=== PATIENT | female | born 1955 | race Caucasian/White ===

== ENCOUNTER 2019-08-31 12:44 | Outpatient (CLI) | payer MEDICARE, SELFPAY ==
[2019-08-31 12:56] LABS: Basophils Absolute Auto 0.1 K/mm3 (0.0-0.1); Eosinophils Absolute Auto 0.2 K/mm3 (0-0.3); Eosinophils Percent Auto 2.6 % (0-4.4); Hematocrit 43.7 % (37.0-47.0); Hemoglobin 14.8 g/dL (12.0-15.0); Immature Granulocyte Absolute 0.02 K/mm3 (0.00-0.031); Immature Granulocyte Percent A 0.3 % (0-0.5); Lymphocytes Absolute Auto 1.87 K/mm3 (0.9-3.2); Lymphocytes Percent Auto 31.9 % (18.3-44.2); Mean Corpuscular HGB Conc 33.9 g/dl (32-36); Mean Corpuscular Volume 91.6 fl (80-100); Mean Platelet Volume 9.1 fl (7.4-10.4); Monocytes Absolute Auto 0.4 K/mm3 (0.1-0.6); Monocytes Percent Auto 6.8 % (2.6-8.5); Neutrophils Absolute Auto 3.4 K/mm3 (1.3-6.7); Neutrophils Percent Auto 57.4 % (45.5-73.1); Platelet Count Result 364 k/mm3 (150-375); Red Blood Count 4.77 M/mm3 (4.2-5.4); Red Cell Distribution Width 12.7 % (11.5-14.5); White Blood Count 5.9 K/mm3 (4.5-10.0)
[2019-08-31 13:00] LABS: Blood Urea Nitrogen 17 mg/dL (8-26); Carbon Dioxide 27 mmol/L (22-30); Chloride 103 mmol/L (98-109); Estimated Glomerular Filt Rate > 60; Glucose 103 mg/dL (70-105); Potassium 4.1 mmol/L (3.5-4.9); Sodium 140 mmol/L (138-146)
[2019-08-31 16:36] LABS: Alanine Aminotransferase 41 U/L (4-35); Albumin Level 5.1 g/dL (3.5-5.1); Alkaline Phosphatase 99 U/L (38-126); Aspartate Amino Transferase 42 U/L (14-36); Bilirubin,Total 0.7 mg/dL (0.2-1.3); Blood Urea Nitrogen 16 mg/dL (7-17); Calcium 10.2 mg/dL (8.4-10.2); Carbon Dioxide 26 mmol/L (22-30); Chloride 102 mmol/L (98-107); Estimated Glomerular Filt Rate > 60; Glucose 98 mg/dL (65-105); Potassium 4.6 mmol/L (3.4-5.0); Sodium 139 mmol/L (137-145)
== END 2019-08-31 12:45 | disposition home or self-care (01) ==
PROVIDERS: PCP Internal Medicine; Visit Provider Internal Medicine Hematology & Oncology
DX: D05.02 Lobular carcinoma in situ of left breast (principal)
CPT/HCPCS: 36415; 80048; 80053; 85025

== ENCOUNTER 2020-10-01 10:35 | Outpatient (CLI) | payer MEDICARE, SELFPAY ==
[2020-10-01 10:48] LABS: Basophils Absolute Auto 0.1 K/mm3 (0.0-0.1); Basophils Percent Auto 1.3 % (0.2-1.2); Eosinophils Absolute Auto 0.4 K/mm3 (0-0.3); Eosinophils Percent Auto 5.8 % (0-4.4); Hemoglobin 13.9 g/dL (12.0-15.0); Immature Granulocyte Absolute 0.02 K/mm3 (0.00-0.031); Immature Granulocyte Percent A 0.3 % (0-0.5); Lymphocytes Absolute Auto 1.73 K/mm3 (0.9-3.2); Lymphocytes Percent Auto 28.1 % (18.3-44.2); Mean Corpuscular HGB Conc 33.9 g/dl (32-36); Mean Corpuscular Volume 91.5 fl (80-100); Mean Platelet Volume 9.2 fl (7.4-10.4); Monocytes Absolute Auto 0.4 K/mm3 (0.1-0.6); Neutrophils Absolute Auto 3.5 K/mm3 (1.3-6.7); Neutrophils Percent Auto 57.5 % (45.5-73.1); Platelet Count Result 332 k/mm3 (150-375); Red Blood Count 4.48 M/mm3 (4.2-5.4); Red Cell Distribution Width 13.1 % (11.5-14.5); White Blood Count 6.2 K/mm3 (4.5-10.0)
[2020-10-01 10:55] LABS: Blood Urea Nitrogen 17 mg/dL (8-26); Carbon Dioxide 28 mmol/L (22-30); Chloride 103 mmol/L (98-109); Estimated Glomerular Filt Rate > 60; Glucose 102 mg/dL (70-105); Sodium 140 mmol/L (138-146)
[2020-10-01 11:42] LABS: Alanine Aminotransferase 30 U/L (4-35); Albumin Level 4.9 g/dL (3.5-5.1); Alkaline Phosphatase 83 U/L (38-126); Anion Gap 8 mmol/L (8-16); Aspartate Amino Transferase 34 U/L (14-36); Bilirubin,Total 0.7 mg/dL (0.2-1.3); Blood Urea Nitrogen 17 mg/dL (7-17); Calcium 10.1 mg/dL (8.4-10.2); Carbon Dioxide 27 mmol/L (22-30); Chloride 104 mmol/L (98-107); Estimated Glomerular Filt Rate > 60; Glucose 100 mg/dL (65-105); Potassium 4.4 mmol/L (3.4-5.0); Sodium 139 mmol/L (137-145)
== END 2020-10-01 10:36 | disposition home or self-care (01) ==
LOC: ANHLAB 10:36
PROVIDERS: PCP Internal Medicine; Visit Provider Internal Medicine Hematology & Oncology
DX: D05.02 Lobular carcinoma in situ of left breast (principal)
CPT/HCPCS: 36415; 80048; 80053; 85025

== ENCOUNTER 2021-10-07 09:28 | Outpatient (CLI) | payer MEDICARE, SELFPAY ==
[2021-10-07 09:45] LABS: Basophils Absolute Auto 0.1 K/mm3 (0.0-0.1); Basophils Percent Auto 1.4 % (0.2-1.2); Eosinophils Absolute Auto 0.4 K/mm3 (0-0.3); Eosinophils Percent Auto 7.2 % (0-4.4); Hematocrit 42.5 % (37.0-47.0); Hemoglobin 13.9 g/dL (12.0-15.0); Immature Granulocyte Absolute 0.02 K/mm3 (0.00-0.031); Immature Granulocyte Percent A 0.4 % (0-0.5); Lymphocytes Absolute Auto 1.51 K/mm3 (0.9-3.2); Lymphocytes Percent Auto 29.5 % (18.3-44.2); Mean Corpuscular HGB Conc 32.7 g/dl (32-36); Mean Corpuscular Hemoglobin 31.2 pg (26-34); Mean Corpuscular Volume 95.5 fl (80-100); Mean Platelet Volume 9.2 fl (7.4-10.4); Monocytes Absolute Auto 0.4 K/mm3 (0.1-0.6); Monocytes Percent Auto 7.8 % (2.6-8.5); Neutrophils Absolute Auto 2.7 K/mm3 (1.3-6.7); Neutrophils Percent Auto 53.7 % (45.5-73.1); Platelet Count Result 308 k/mm3 (150-375); Red Blood Count 4.45 M/mm3 (4.2-5.4); White Blood Count 5.1 K/mm3 (4.5-10.0)
[2021-10-07 09:48] LABS: Blood Urea Nitrogen 15 mg/dL (8-26); Carbon Dioxide 27 mmol/L (22-30); Chloride 105 mmol/L (98-109); Estimated Glomerular Filt Rate > 60; Glucose 108 mg/dL (70-105); Ionized Calcium (POC) 1.18 mmol/L (1.11-1.31); Potassium 3.8 mmol/L (3.5-4.9); Sodium 141 mmol/L (138-146)
[2021-10-07 11:08] LABS: Alanine Aminotransferase 47 U/L (4-35); Albumin Level 4.8 g/dL (3.5-5.1); Alkaline Phosphatase 84 U/L (38-126); Anion Gap 8 mmol/L (8-16); Aspartate Amino Transferase 48 U/L (14-36); Bilirubin,Total 0.7 mg/dL (0.2-1.3); Blood Urea Nitrogen 16 mg/dL (7-17); Calcium 9.7 mg/dL (8.4-10.2); Carbon Dioxide 25 mmol/L (22-30); Chloride 106 mmol/L (98-107); Estimated Glomerular Filt Rate > 60; Glucose 107 mg/dL (65-110); Potassium 3.8 mmol/L (3.4-5.0); Sodium 139 mmol/L (137-145)
== END 2021-10-07 09:29 | disposition home or self-care (01) ==
LOC: ANHLAB 09:32
PROVIDERS: PCP Internal Medicine; Visit Provider Internal Medicine Hematology & Oncology
DX: D05.02 Lobular carcinoma in situ of left breast (principal)
CPT/HCPCS: 36415; 80047; 80053; 85025

== ENCOUNTER 2022-10-06 09:44 | Outpatient (CLI) | payer MEDICARE, SELFPAY ==
[2022-10-06 09:56] LABS: Basophils Absolute Auto 0.1 K/mm3 (0.0-0.1); Basophils Percent Auto 1.1 % (0.2-1.2); Eosinophils Absolute Auto 0.3 K/mm3 (0-0.3); Eosinophils Percent Auto 4.6 % (0-4.4); Hematocrit 42.1 % (37.0-47.0); Hemoglobin 14.5 g/dL (12.0-15.0); Immature Granulocyte Absolute 0.01 K/mm3 (0.00-0.031); Immature Granulocyte Percent A 0.2 % (0-0.5); Lymphocytes Absolute Auto 1.62 K/mm3 (0.9-3.2); Lymphocytes Percent Auto 28.4 % (18.3-44.2); Mean Corpuscular HGB Conc 34.4 g/dl (32-36); Mean Corpuscular Hemoglobin 31.6 pg (26-34); Mean Corpuscular Volume 91.7 fl (80-100); Mean Platelet Volume 9.3 fl (7.4-10.4); Monocytes Absolute Auto 0.4 K/mm3 (0.1-0.6); Monocytes Percent Auto 6.8 % (2.6-8.5); Neutrophils Absolute Auto 3.4 K/mm3 (1.3-6.7); Neutrophils Percent Auto 58.9 % (45.5-73.1); Platelet Count Result 322 k/mm3 (150-375); Red Blood Count 4.59 M/mm3 (4.2-5.4); Red Cell Distribution Width 12.4 % (11.5-14.5); White Blood Count 5.7 K/mm3 (4.5-10.0)
[2022-10-06 10:02] LABS: Blood Urea Nitrogen 15 mg/dL (8-26); Carbon Dioxide 26 mmol/L (22-30); Chloride 105 mmol/L (98-109); Estimated Glomerular Filt Rate > 60; Glucose 106 mg/dL (70-105); Ionized Calcium (POC) 1.21 mmol/L (1.11-1.31); Sodium 141 mmol/L (138-146)
[2022-10-06 15:00] LABS: Alanine Aminotransferase 38 U/L (6-35); Albumin Level 4.9 g/dL (3.5-5.1); Alkaline Phosphatase 92 U/L (38-126); Anion Gap 6 mmol/L (8-16); Aspartate Amino Transferase 41 U/L (14-36); Bilirubin,Total 0.7 mg/dL (0.2-1.3); Blood Urea Nitrogen 15 mg/dL (7-17); Calcium 9.7 mg/dL (8.4-10.2); Carbon Dioxide 28 mmol/L (22-30); Chloride 106 mmol/L (98-107); Estimated Glomerular Filt Rate > 60; Glucose 103 mg/dL (65-110); Potassium 4.1 mmol/L (3.4-5.0); Sodium 140 mmol/L (137-145)
== END 2022-10-06 09:45 | disposition home or self-care (01) ==
LOC: ANHLAB 09:47
PROVIDERS: PCP Internal Medicine; Visit Provider Internal Medicine Hematology & Oncology
DX: D05.02 Lobular carcinoma in situ of left breast (principal)
CPT/HCPCS: 36415; 80047; 80053; 85025

== ENCOUNTER 2023-10-05 09:55 | Outpatient (CLI) | payer MEDICARE, SELFPAY ==
[2023-10-05 10:15] LABS: Basophils Absolute Auto 0.1 K/mm3 (0.0-0.1); Basophils Percent Auto 1.1 % (0.2-1.2); Eosinophils Absolute Auto 0.5 K/mm3 (0-0.3); Eosinophils Percent Auto 7.5 % (0-4.4); Hematocrit 42.9 % (37.0-47.0); Hemoglobin 14.7 g/dL (12.0-15.0); Immature Granulocyte Absolute 0.02 K/mm3 (0.00-0.031); Immature Granulocyte Percent A 0.3 % (0-0.5); Lymphocytes Absolute Auto 1.87 K/mm3 (0.9-3.2); Lymphocytes Percent Auto 30.3 % (18.3-44.2); Mean Corpuscular HGB Conc 34.3 g/dl (32-36); Mean Corpuscular Hemoglobin 31.7 pg (26-34); Mean Corpuscular Volume 92.7 fl (80-100); Mean Platelet Volume 9.3 fl (7.4-10.4); Monocytes Absolute Auto 0.4 K/mm3 (0.1-0.6); Monocytes Percent Auto 6.3 % (2.6-8.5); Neutrophils Absolute Auto 3.4 K/mm3 (1.3-6.7); Neutrophils Percent Auto 54.5 % (45.5-73.1); Platelet Count Result 326 k/mm3 (150-375); Red Blood Count 4.63 M/mm3 (4.2-5.4); White Blood Count 6.2 K/mm3 (4.5-10.0)
[2023-10-05 10:24] LABS: Blood Urea Nitrogen 15 mg/dL (8-26); Carbon Dioxide 25 mmol/L (22-30); Chloride 104 mmol/L (98-109); Estimated Glomerular Filt Rate > 60; Glucose 105 mg/dL (70-105); Ionized Calcium (POC) 1.24 mmol/L (1.11-1.31); Potassium 4.2 mmol/L (3.5-4.9); Sodium 142 mmol/L (138-146)
[2023-10-05 12:56] LABS: Alanine Aminotransferase 59 U/L (6-35); Albumin Level 5.1 g/dL (3.5-5.1); Alkaline Phosphatase 95 U/L (38-126); Anion Gap 8 mmol/L (4-12); Aspartate Amino Transferase 44 U/L (14-36); Bilirubin,Total 0.8 mg/dL (0.2-1.3); Blood Urea Nitrogen 14 mg/dL (7-17); Calcium 9.9 mg/dL (8.4-10.2); Carbon Dioxide 25 mmol/L (22-30); Chloride 106 mmol/L (98-107); Estimated Glomerular Filt Rate > 60; Glucose 106 mg/dL (65-110); Potassium 4.4 mmol/L (3.4-5.0); Sodium 139 mmol/L (137-145)
== END 2023-10-05 09:56 | disposition home or self-care (01) ==
LOC: ANHLAB 09:57
PROVIDERS: PCP Internal Medicine; Visit Provider Internal Medicine Hematology & Oncology
DX: D05.02 Lobular carcinoma in situ of left breast (principal)
CPT/HCPCS: 36415; 80047; 80053; 85025

== ENCOUNTER 2023-12-31 09:30 | Outpatient (RCR) | payer MEDICARE, SELFPAY ==
--- NOTE | 2023-11-26 18:01 | PTOPEVAL1 ---
Assessment and note entered by Andria Hercules, PT Evaluation Information Assessment Status Evaluation Diagnosis B knee pain and arthritis Onset gradual, over time Subjective Information Pt reports feeling increased pain to B knees, worse with bending and squatting. States it was really hurting bad last Thursday after she was on her feet constantly while removing wallpaper, climbing up ladder, getting down on the floor and getting back up on her feet. However today, it seemed better. states being at the pool helps alot and that was where she was at prior to coming in to therapy. States FRAMING CONSULTANT changed her medications because the statins seem to have caused the increased swelling and pain which she experienced for almost a month , swelling is gone at this time. Reported Pain Level Pain Score 4: Self Report Assessment PT Clinical Summary Pt is a 68 yo female who presents to therapy with B knee pain, B genu varus R > L; muscle tightness, weakness, postural and gait impairments which impact her tolerance to standing and ambulation tasks on uneven surfaces and stairs. She has a PMHx of HTN, Dyslipidemia, pre-diabetes, osteopenia, transaminitis and hyperglycemia. X- rays showed mild OA to B knees. She will greatly benefit from skilled PT to improve joint mobility, core and BLE strength, knee stability and pain management to improve quality of life. Plan of Care Interventions Check Out for Orthotic/Pr,Electrical Stimulation, Gait Training,Hot Pack/Cold Pack,Manual Therapy, Neuro Re-education,Patient/Caregiver Education, Therapeutic Activities,Therapeutic Exercise, Ultrasound PT Services Indicated Yes Treatment Frequency and 2x/week x 10 visits Duration These treatments will address the objective and functional deficits as defined above. The patient will be advanced safely and appropriately in order for the patient to progress towards his/her prior level of function. Additional exercises will be introduced and as well as a comprehensive home exercise program upon discharge, if needed, ?to ensure carryover of functional gains achieved in the clinic. This treatment plan has been reviewed and agreement upon by the patient.
--- NOTE | 2024-01-07 11:57 | PTOPDC ---
Assessment and note entered by Andria Hercules, PT Evaluation Information Assessment Status Discharge Diagnosis B knee pain and arthritis ICD-10 Condition Codes (PT) M25.561,Pain in left knee M25.562 Onset gradual, over time Subjective Information Pt reports feeling so much better and pain has significantly reduced. States appreciate all the knowledge she has gained with regards to awareness and activity pacing. Compliant with HEPs Assessment PT Clinical Summary Patient demos excellent progress with therapy, noted significant reduction in pain, improved mobility, strength and balance. Skilled PT discontinued at this time. Plan of Care PT Services Indicated No
== END 2024-01-07 13:20 | disposition home or self-care (01) ==
LOC: ANHHIPT 09:30
PROVIDERS: PCP Physician Assistant Medical; Visit Provider Physician Assistant Medical
DX: M25.561 Pain in right knee (principal); M25.562 Pain in left knee
CPT/HCPCS: 97035; 97110; 97112; 97116; 97140; 97161; 97530; 97750

== ENCOUNTER 2024-11-29 10:44 | Outpatient (CLI) | payer MEDICARE, SELFPAY ==
[2024-11-29 11:00] LABS: Basophils Absolute Auto 0.1 K/mm3 (0.0-0.1); Basophils Percent Auto 0.9 % (0.2-1.2); Eosinophils Absolute Auto 0.3 K/mm3 (0-0.3); Eosinophils Percent Auto 5.3 % (0-4.4); Hematocrit 39.3 % (37.0-47.0); Hemoglobin 13.2 g/dL (12.0-15.0); Immature Granulocyte Absolute 0.02 K/mm3 (0.00-0.031); Immature Granulocyte Percent A 0.4 % (0-0.5); Lymphocytes Absolute Auto 1.49 K/mm3 (0.9-3.2); Lymphocytes Percent Auto 27.3 % (18.3-44.2); Mean Corpuscular HGB Conc 33.6 g/dl (32-36); Mean Corpuscular Hemoglobin 30.3 pg (26-34); Mean Corpuscular Volume 90.1 fl (80-100); Mean Platelet Volume 9.1 fl (7.4-10.4); Monocytes Absolute Auto 0.4 K/mm3 (0.1-0.6); Monocytes Percent Auto 6.6 % (2.6-8.5); Neutrophils Absolute Auto 3.2 K/mm3 (1.3-6.7); Neutrophils Percent Auto 59.5 % (45.5-73.1); Platelet Count Result 309 k/mm3 (150-375); Red Blood Count 4.36 M/mm3 (4.2-5.4); Red Cell Distribution Width 12.3 % (11.5-14.5); White Blood Count 5.5 K/mm3 (4.5-10.0)
[2024-11-29 11:12] LABS: Blood Urea Nitrogen 16 mg/dL (8-26); Carbon Dioxide 26 mmol/L (22-30); Chloride 102 mmol/L (98-109); Estimated Glomerular Filt Rate > 60; Glucose 104 mg/dL (70-105); Ionized Calcium (POC) 1.18 mmol/L (1.11-1.31); Potassium 3.6 mmol/L (3.5-4.9); Sodium 140 mmol/L (138-146)
--- OUTSIDE RECORDS SUMMARY | 2024-11-29 11:53 | XMS_ITS | Clinical Summary ---
Author Organization [facility] Address [address] [place] [address] Care Team Providers Care Wool Hat Finisher Name Role Phone Avtar Tesfaye Primary Care Provider Unavailabl e Source Comments [facility],non-owned Affiliates and Associated Physician Practices is amultiple site organization consisting of ambulatory clinics and hospital sitesin [place], [place], [place] and [place]. This disclosure is being madepursuant to the Care Everywhere program and may not contain all information available regarding this patient. Last updated 18.[facility] [employer] Allergies Active Allergy Reactions Criticality Noted Date Comments Penicillin G Rash Medium 12/21/2012 Active Problems Problem Noted Date Diagnosed Date Basal cell carcinoma of skin of upper limb, including shoulder 09/16/2013 Overview (09/14/2017): S/p ED&C (03/27) Actinic keratosis 12/21/2012 Family History Medical History Relation Name Comments Diabetes Brother High Cholesterol Brother Cancer - Skin, Non Melanoma Father Diabetes Father Glaucoma Father Arthritis - Rheumatoid Mother Cancer - Skin, Non Melanoma Mother Glaucoma Mother Bone Fracture Sister Diabetes Sister High Cholesterol Sister Thyroid Disease Sister Relation Name Status Comments Brother Father Mother Sister Social History Tobacco Use Types Packs/Day Years Used Date Smoking Tobacco: Never Smokeless Tobacco: Never Alcohol Use Standard Drinks/Week Comments Yes 0 (1 standard drink = 0.6 oz pur e alcohol) Comments Unknown Sex and Gender Information Value Date Recorded Sex Assigned at Not on file 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 Gender Identity Not on file Sexual Orientation Not on file Last Filed Vital Signs Vital Sign Reading Time Taken Comments Blood Pressure 138/91 12/23/2013 2:15 PM CDT Pulse 92 12/23/2013 2:15 PM CDT Temperature - - Respiratory Rate 12 12/23/2013 2:15 PM CDT Oxygen Saturation - - Inhaled Oxygen Concentration - - Weight 61.2 kg (135 lb) 12/23/2013 2:15 PM CDT Height 152.4 cm (5') 12/23/2013 2:15 PM CDT Body Mass Index 26.37 12/23/2013 2:15 PM CDT Plan of Treatment Health Maintenance Due Date Last Done Comments BONE DENSITY TESTING 1955 COLOGUARD (AGES 45-75) - COL ON CA SCREENING 1955 COLON MONITORING 1955 COLONOSCOPY - COLON CA SCREENING 1955 CT COLONOGRAPHY - COLON CA SCREENING 1955 Colorectal Cancer Screening 1955 FIT - COLON CA SCREENING 1955 FLEX SIG - COLON CA SCREENING 1955 LIPID TESTING 1955 MAMMOGRAM 1955 HEPATITIS C SCREENING 03/28/1972 DTAP/TDAP/TD VACCINES (1 - Tdap) 1973 PNEUMOCOCCAL VACCINE 50+ (1 of 1 - PCV) 2004 ZOSTER VACCINE (1 of 2) 2004 COVID-19 VACCINE ( - 2023-2 5 season) 2024 DEPRESSION SCREENING 06/15/2024 INFLUENZA VACCINE (Season Ended) 2025 Respiratory Syncytial Virus (RSV) Vaccine Pt: or over 60 yrs (1 - 1-dose 75+ series) 2029 HEPATITIS B VACCINE Aged Out No longe r eligible based on patient's age to complete this topic HIB VACCINE Aged Out No longer eligi ble based on patient's age to complete this topic HPV VACCINE Aged Out No longer eligi ble based on patient's age to complete this topic MENINGOCOCCAL (Group B) VACC INE SHARED DECISION-MAKING Aged Out No longer eligibl e based on patient's age to complete this topic MENINGOCOCCAL GROUPS A/C/Y/W VACCINE Aged Out No longer eligible b ased on patient's age to complete this topic Care Teams Wool Hat Finisher Relationship Specialty Start Date End Date Avtar Tesfaye Update Information PCP - General 12/07/14
--- OUTSIDE RECORDS SUMMARY | 2024-11-29 11:53 | XMS_ITS | Encounter Summary ---
Author Organization [facility] [employer] [facility] Address [address] [place] [address] Care Team Providers Care Reducer Name Role Phone Avtar Ely MD Primary Care Provider [phone] Encounter Details Date Type Department Care Team (Late Contact Info) Description 11/28/2024 Orders Only [facility] Oncology and Hematology - [place] [address] [place] [address] Fortunato Tao MD [facility] [employer] [address] [place] [phone] Breast neoplasm, Tis (LCIS), left (Primary Dx) Social History Tobacco Use Types Packs/Day Years Used Date Smoking Tobacco: Never Smokeless Tobacco: Never Alcohol Use Standard Drinks/Week Comments Yes 0 (1 standard drink = 0.6 oz pur e alcohol) socially Comments No Sex and Gender Information Value Date Recorded Sex Assigned at Not on file 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 Gender Identity Not on file Sexual Orientation Not on file Occupation Industry Job Start Date Job End Date Not on file Not on file Not on file Not on file documented as of this encounter Plan of Treatment Upcoming Encounters Date Type Department Care Team (Late Contact Info) Description 12/01/2025 8:30 AM CDT Office Visit [facility] Oncology and Hematology - [place] [address] [place] [address] Fortunato Tao MD [address] [employer] [address] [place] [address] Scheduled Orders Name Type Priority Associated Diagnoses Orde r Schedule CBC WITH DIFFERENTIAL Lab Routine Breast neoplasm, Tis (LCIS), left Expected: 11/28/2024, Expires: 11/28/2025 COMPREHENSIVE METABOLIC PANEL Lab Routine Breast neoplasm, Tis (LCIS), left Expected: 11/28/2024, Expires: 11/28/2025 documented as of this encounter Visit Diagnoses Diagnosis Breast neoplasm, Tis (LCIS), left- Primary documented in this encounter Care Teams Reducer Relationship Specialty Start Date End Date Avtar Ely MD [address] [place] [phone] PCP - General Internal Medicine 02/13/12 11/28/24 documented as of this encounter
--- OUTSIDE RECORDS SUMMARY | 2024-11-29 11:53 | XMS_ITS | Clinical Summary ---
Author Organization [facility] Address [address] [place] [address] Phone Care Team Providers Care Freight Receiver Name Role Phone Unavailable Primary Care Provider Unavailabl e Allergies Active Allergy Reactions Criticality Noted Date Comments Latex Rash Medium 02/24/2012 Powder in gloves cause rash Powder in gloves cause rash Penicillin G Rash Medium 12/21/2012 Penicillins Rash Medium 02/13/2012 Medications Fish Oil-[place]-3 Fatty Acids 300-500 mg Capsule Take 500 mg by mouth daily. Active multivitamin (DAILY-CODIE) tablet Take 1 Tablet by mouth daily. Active rosuvastatin (CRESTOR) 10 mg tablet Take 10 mg by mouth daily. Active pantoprazole (PROTONIX) 20 mg Tablet, Delayed Release (E.C.) Take 20 mg by mouth daily. Active olmesartan-hydro CHLOROthiazide (BENICAR-HCT) 20-12.5 mg tablet Take 1 Tablet by mouth every 24 hours. 03/21/2024 Active Active Problems Patient Care Coordination No te Formatting of this note migh t be different from the original. Primary Care: Avtar Ely MD Referring Provider: Avtar Ely MD [facility] [address] [place] [id number] Other: Problem Noted Date Diagnosed Date History of lobular carcinoma in situ (LCIS) of b reast 08/31/2017 BRCA negative 07/21/2014 Family history of breast cancer 06/28/2013 Genetic testing 06/15/2013 Overview (07/15/2013): brca neg, dilip neg Resolved Problems Problem Noted Date Diagnosed Date Resolved Date Lobular carcinoma in situ of right breast TisN0 02/26/2012 08/31/2017 Encounters Date Type Department Care Team Description 11/29/2024 11:15 AM CDT Office Visit [facility] Oncology and [facility] [address] [place] [address] Fortunato Tao MD Breast neoplasm, Tis (LCIS), left (Primary Dx) 11/28/2024 Orders Only [facility] and [facility] [address] [place] [address] Fortunato Tao MD Breast neoplasm, Tis (LCIS), left (Primary Dx) 08/31/2024 External Device Data STL ABSTRACTION Provider, Abstract from Last 3 Months Family History Medical History Relation Name Comments Hypertension Brother 1 Hypertension Brother 2 Diabetes Father Heart Disease Father Other Father diabetes Breast Cancer Maternal Aunt 1 60's Colon Cancer Maternal Aunt 2 50's Breast Cancer Maternal Cousin 1 Kary W Uterine Cancer Maternal Cousin 1 Kary W Breast Cancer Maternal Cousin 2 Zoraida 20's Moth er's brother Trey's daughter. Both Trey's daughters had breast ca Breast Cancer Maternal Cousin 3 30's Moth er's brother Trey's daughter Hypertension Maternal Grandfather Colon Cancer Maternal Uncle 50's Colon Cancer Mother Colon Cancer Other nephew Diabetes Sister 1 Hypertension Sister 1 Other Sister 1 diabetes Hypertension Sister 2 Hypertension Sister 3 Cancer Sister 4 pituitary mass Hypertension Sister 4 Ovarian Cancer Neg Hx Relation Name Status Comments Brother 1 Alive Brother 2 Alive Father Alive Maternal Aunt 1 Alive Maternal Aunt 2 Maternal Cousin 1 Kary W Maternal Cousin 2 Zoraida Alive Maternal Cousin 3 Maternal Grandfather Alive Maternal Uncle Mother Other nephew Alive Sister 1 Alive Sister 2 Alive Sister 3 Alive Sister 4 Alive Social History Tobacco Use Types Packs/Day Years Used Date Smoking Tobacco: Never Smokeless Tobacco: Never Tobacco Cessation:Counseling Given: Not Answered Alcohol Use Standard Drinks/Week Comments Yes 0 (1 standard drink = 0.6 oz pur e alcohol) socially Comments No Sex and Gender Information Value Date Recorded Sex Assigned at Not on file 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 Gender Identity Not on file Sexual Orientation Not on file Occupation Industry Job Start Date Job End Date Not on file Not on file Not on file Not on file Last Filed Vital Signs Vital Sign Reading Time Taken Comments Blood Pressure 157/98 11/29/2024 11:08 AM CDT Pt sated that she is nervous Pulse 94 11/29/2024 11:03 AM CDT Temperature 36.6 C (97.8 F) 11/29/2024 11:03 AM CDT Respiratory Rate 15 11/29/2024 11:0 3 AM CDT Oxygen Saturation 95% 11/29/2024 11: 03 AM CDT Inhaled Oxygen Concentration - - Weight 77 kg (169 lb 12.8 oz) 11/29/2024 11:03 AM CDT Height 152.4 cm (5') 10/07/2021 9:53 AM CDT Body Mass Index 33.16 10/07/2021 9:53 AM CDT Plan of Treatment Upcoming Encounters Date Type Department Care Team (Late st Contact Info) Description 12/01/2025 8:30 AM CDT Office Visit [facility] Oncology and Hematology - [place] [address] [place] [address] [facility] [address] [place] [address] Fortunato Tao MD [address] [facility] [address] [place] [address] Health Maintenance Due Date Last Done Comments DTAP/TDAP/TD VACCINES (1 - Tdap) 1973 COLORECTAL SCREENING 1999 Colorectal Cancer Screening 1999 FIT-DNA Q 3 years 1999 FIT/FOBT Q 1 year 1999 Flex Sig/CT Colonography Q 5 years 1999 ZOSTER VACCINE (2 of 2) 06/14/2020 04/19/2020 PNEUMOCOCCAL VACCINE 50+ YEA RS (2 of 2 - PPSV23) 03/21/2022 03/21/2021 INFLUENZA VACCINE (#1) 2024 03/21/2021 [place] Preventative Visit/Annual Wellness Visit 06/15/2024 RSV VACCINE (60+ or ) (1 - 1-dose 75+ series) 2029 OSTEOPOROSIS SCREENING 10/17/2029 5, 10/17/2024, 04/28/2022, Additional history exists Insurance Advance Directives For more information, please contact: [phone] * Full Code (Latest Code Status on File) Date Activated Date Inactivated Comments 02/26/2012 10:51 AM 02/26/2012 7:23 PM * Full Code Date Activated Date Inactivated Comments 02/26/2012 9:09 AM 02/26/2012 10:51 AM
--- OUTSIDE RECORDS SUMMARY | 2024-11-29 11:53 | XMS_ITS | Encounter Summary ---
Author Organization [facility] Address [address] [place] [address] Care Team Providers Care Member Of Technical Staff Name Role Phone Unavailable Primary Care Provider Unavailabl e Reason for Visit * Reason Comments Follow Up Encounter Details Date Type Department Care Team (Late st Contact Info) Description 11/29/2024 11:15 AM CDT Office Visit [facility] Oncology and Hematology - [place] [address] [facility] [address] [place] [address] Fortunato Tao MD [address] [facility] [address] [place] [address] Breast neoplasm, Tis (LCIS), left (Primary [...] on file 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 Sex: female : 1955 DIAGNOSIS Lobular carcinoma in situ ER positive NM negative status post bilateral mastectomy and immediate reconstruction on March 23, 2012. CURRENT TREATMENT Surveillance TREATMENT HISTORY Patient did not receive radiation therapy and hormonal therapy. SUBJECTIVE Patient came to the office for follow-up visit. She denies any new lumps bumps or lymphadenopathy. She had some skin lesions removed turned out to be pretty cancerous from the upper chest wall. Denies any other new complaints. Review of system Constitutional: denies fevers, sweats, weight and appetite stable, denies any tiredness and fatigue HEENT: denies sinus congestion, hearing or vision problems Respiratory: denies cough, dyspnea, wheeze Cardiovascular: denies chest pain, exertional chest pressure/discomfort, nausea, syncope, shortnessof breath GI: denies constipation, diarrhea, dsyphagia, reflux symptoms, vomiting, melena : denies dysuria, frequency, incontinence, urgency Integumentary system: no lymphadenopathy, sweats, flushing Musculoskeletal: denies: myalgia, arthralgia Neurological: denies blurry or disturbed vision, numbness/weakness, dizziness Skin: No lumps, bumps or rashes. 12 point review of system was reviewed Objective: Vital signs in last 24 hours: As per nursing note Exam: General appearance: alert, cooperative, no distress, appears stated age Head: normocephalic, without obvious abnormality, atraumatic Eyes: conjunctivae/corneas clear, EOM's intact Ears: normal external ear canals AU Nose: Nares normal. Septum midline. Mucosa normal. No drainage or sinus tenderness Throat: Lips, mucosa, and tongue normal. Teeth and gums normal Neck: supple, symmetrical, trachea midline. Lungs: clear to auscultation bilaterally Heart: regular rate and rhythm, S1, S2 normal, no murmur, click, rub or gallop Abdomen: soft, non-tender. Bowel sounds normal. No masses, No organomegaly Extremities: extremities normal, atraumatic, no cyanosis or edema Skin: Skin color, texture, turgor normal. No rashes or lesions Lymph nodes: No lymphadenopathy Neuro: No obvious focal deficit Bilateral chest wall examination showed bilateral breast very constrictive changes with a breast implant without any masses and lymphadenopathy. There is areas of skin biopsies in the upper chest wall. Exam as above PATH LABS Labs from August 31, 2019 showed WBC 5.9 hemoglobin 14.8 platelet 364,000. Labs from October 01 showed WBC 6.2 hemoglobin 13.9 platelet 332,000 creatinine 0.7. Labs from October 07 showed WBC 5.1 hemoglobin 13.9 platelet 308,000 Labs from October 06 showed WBC 5.7 hemoglobin 14.5 platelet 322,000 creatinine 0.7 Labs from September 2021 showed hemoglobin 14.7 platelets 326,000 creatinine 0.7 Labs from November 29 showed creatinine 0.9 WBC 5.5 hemoglobin 13.2 platelet 309,000 Assessment: Plan: Patient Active Problem List Diagnosis Date Noted History of lobular carcinoma in situ (LCIS) of breast 08/31/2017 BRCA negative 07/21/2014 Family history of breast cancer 06/28/2013 Genetic testing 06/15/2013 Overview Note: brca neg, dilip neg Lobular carcinoma in situ with pleomorphic component ER positive NM negative status post bilateral mastectomy and right sentinel lymph node biopsy on March 23, 2012 with immediate reconstruction. She did not receive hormonal therapy and radiation therapy. Lab stable. There is no evidence of relapse of disease on my examination. I recommended monthly self-examination. We will see her back on yearly basis. History of thrombocytosis. Resolved. Hypertension. Patient is on antihypertensive but the blood pressure remains slightly elevated. She will discuss with the primary care physician for the further management. 11/29/2024 Fortunato Tao MD documented in this encounter Plan of Treatment Upcoming Encounters Date Type Department Care Team (Late st Contact Info) Description 12/01/2025 8:30 AM CDT Office Visit [facility] Oncology and Hematology - [place] [address] [facility] [address] [place] [address] Fortunato Tao MD [address] [facility] [address] [place] [address] Scheduled Orders Name Type Priority Associated Diagnoses Orde r Schedule CBC WITH DIFFERENTIAL Lab Stat Breast neoplasm, Tis (LCIS), left Expected: 11/29/2025, Expires: 11/29/2025 COMPREHENSIVE METABOLIC PANEL Lab Stat Breast neoplasm, Tis (LCIS), left Expected: 11/29/2025, Expires: 11/29/2025 documented as of this encounter Visit Diagnoses Diagnosis Breast neoplasm, Tis (LCIS), left- Primary documented in this encounter
== END 2024-11-29 10:45 | disposition home or self-care (01) ==
PROVIDERS: PCP Physician Assistant Medical; Visit Provider Internal Medicine Hematology & Oncology
DX: D05.02 Lobular carcinoma in situ of left breast (principal)
CPT/HCPCS: 36415; 80047; 85025